=== PATIENT | male | born 1980 | race Caucasian/White ===

== ENCOUNTER 2022-06-17 15:44 | Observation (INO) ==
[2022-06-17] MEDS ORDERED: Aspirin Enteric Coated 325 MG Tablet PO ONE (19:24)
[2022-06-17] MEDS ORDERED: Melatonin 3 MG TABLET PO PRN (19:25)
[2022-06-17] MEDS ORDERED: Ondansetron 4 MG/2 ML VIAL IVP PRN (19:25)
[2022-06-17] MEDS ORDERED: Naloxone 0.4 MG/ML INJ IVP PRN (19:25)
[2022-06-17] MEDS ORDERED: Acetaminophen 325 MG TABLET PO PRN (19:25)
[2022-06-17] MEDS ORDERED: Dextrose Gel 15 GM/37.5 ML TUBE PO PRN ×2 (20:03)
[2022-06-17] MEDS ORDERED: *HR* Dextrose 50 % in Water (Syg) 50 ML SYRINGE IVP PRN (20:03)
[2022-06-17] MEDS ORDERED: D5% in Water 1,000 ML IVC PRN (20:03)
[2022-06-17] MEDS ORDERED: Insulin DETEMIR 100 UNIT/ML X5UNITS SUBQ SCH (21:00)
[2022-06-17 23:54] LABS: Amphetamine Screen,Urine Negative ng/mL (Cutoff=1000); Barbiturate Screen,Urine Negative ng/mL (Cutoff=200); Benzodiazepines Screen,Urine Negative ng/mL (Cutoff=200); Cannabinoid Screen,Urine Positive ng/mL (Cutoff = 50); Cocaine Screen,Urine Negative ng/mL (Cutoff= 300); Opiate Screen,Urine Negative ng/mL (Cutoff=300); Phencyclidine Screen,Urine Negative ng/mL (Cutoff=25)
[2022-06-18 05:08] LABS: Basophils % 0.3 %; Eosinophils # 0.2 K/mcL (0.0-0.6); Eosinophils % 1.3 %; Hematocrit 42.8 % (37.5-50.1); Hemoglobin 14.7 g/dL (12.9-16.9); Immature Granulocytes % 0.3 % (0-4); Lymphocytes # 2.7 K/mcL (0.6-4.6); Lymphocytes % 22.9 %; Mean Corpuscular HGB Conc 34.3 g/dL (31.6-35.5); Mean Corpuscular Volume 87.3 fL (83.0-100.0); Mean Platelet Volume 10.2 fL (9.4-12.4); Monocytes # 0.8 K/mcL (0.0-1.3); Monocytes % 6.8 %; Neutrophils # 8.1 K/mcL (1.6-8.9); Platelet Count 266 K/mcL (140-400); Red Cell Distribution Width 12.5 % (11.5-14.5); Segmented Neutrophils % 68.4 %; White Blood Count 11.9 K/mcL (4.3-11.1)
[2022-06-18 05:12] LABS: INR 1.1; Prothrombin Time 12.1 Seconds (9.4-12.1)
[2022-06-18 05:15] LABS: Activated Partial Thrombo Time 30.3 Seconds (26.0-36.0)
[2022-06-18 05:21] LABS: Estimated Average Glucose 246 mg/dl; Hemoglobin A1C 10.2 %
[2022-06-18 05:25] LABS: Alanine Aminotransferase 16 Units/L (7-52); Albumin 3.4 g/dL (3.5-5.7); Albumin/Globulin Ratio 1.5 (1.1-2.2); Alkaline Phosphatase 44 Units/L (34-104); Aspartate Amino Transferase 11 Units/L (13-39); BUN/Creatinine Ratio 22 (6-26); Bilirubin,Total 0.6 mg/dL (0.3-1.0); Blood Urea Nitrogen 13 mg/dL (6-20); Calcium 8.7 mg/dL (8.6-10.3); Carbon Dioxide 26 mEq/L (23-29); Chloride 106 mEq/L (98-107); Chol/HDL Ratio 3.5 (0-4.9); Globulin 2.3 g/dL (2.4-3.5); Glucose 188 mg/dL (70-105); Magnesium 1.9 mg/dL (1.6-2.6); Osmolality,Calculated 293 (280-300); Potassium 3.5 mEq/L (3.5-5.1); Sodium 139 mEq/L (136-145); Total Protein 5.7 g/dL (6.4-8.9)
[2022-06-18 05:49] LABS: Folate 14.3 ng/mL (3.0-16.0)
[2022-06-18 07:56] VITALS: TEMP 98.6; O2SAT 98
[2022-06-18] MEDS: Insulin LISPRO 300 UNITS/3 ML VIAL SUBQ SCH ×2 (08:42→13:50)
[2022-06-18] MEDS ORDERED: Aspirin Enteric Coated 81 MG Tablet PO SCH (09:00)
[2022-06-18] MEDS ORDERED: Nicotine 21 MG PATCH.TD24 TD SCH (09:00)
[2022-06-18] MEDS ORDERED: lisinopriL 20 MG TABLET PO SCH (13:15)
[2022-06-18 14:36] VITALS: BP 142/88; PULSE 90
[2022-06-19] MEDS ORDERED: hydroCHLOROthiazide 25 MG TABLET PO SCH (09:00)
== END 2022-06-18 16:41 | disposition home or self-care (01) ==
LOC: 3BNU → SUATTDRO 18:20
PROVIDERS: ADMIT Internal Medicine; ATTEND Internal Medicine